=== PATIENT | male | born 1985 | race African-American/Black ===

== ENCOUNTER 2018-01-02 18:07 | Emergency (ER) | payer BC ==
--- NOTE | 2018-01-02 19:22 | ED ---
Back Pain - HPI Summary HPI Summary: A 32 y/o male presents to ED c/o back pain reaching 3/10 in severity. Currently , the patient has no back pain when he lays down, however, does have lower back pain reaching to his buttock area when he stands up. As per triage, "states that appx 7 pm last evening was doing his laundry.he lifted the laundry basket and felt a sudden pop in his low back .ststes pain started appx 2 or 3 hrs later.now couldnt get out of bed,today he has rtrouble moving.pain radiates down r buttock". According to the patient, he started experiencing lower back pain yesterday after he lifted up his laundry basket. He stated that when he lifted up the basket, he felt something was wrong, however he still continued with his everyday routine activities and ended up laying in bed 3-4 hours later which is when he started feeling the back pain. Additional symptoms include frequent urination. He noted that he is a very active person and does physical "stuff" all the time including with his job. Patient took 800 mg of Ibuprofen earlier. - History of Current Complaint Chief Complaint: EDBackInjuryPain Stated Complaint: LOWER BACK PAIN Time Seen by Provider: 01/02/18 19:18 Hx Obtained From: Patient Onset/Duration: Sudden Onset, Lasting Hours, Still Present Onset/Duration: Started Hours Ago, Still Present Timing: Constant Severity Initially: Mild Severity Currently: Mild Pain Intensity: 3 Pain Scale Used: 0-10 Numeric Aggravating Symptom(s): Movement Alleviating Symptom(s): Position - Laying down on bed Associated Signs And Symptoms: Positive: Negative - Allergies/Home Medications Allergies/Adverse Reactions: Allergies Allergy/AdvReac Type Severity Reaction Status Date / Time No Known Allergies Allergy Verified 01/02/18 19:53 Home Medications: Home Medications buPROPion TAB* [Wellbutrin TAB*] 75 mg PO DAILY 01/02/18 [History Confirmed ] PMH/Surg Hx/FS Hx/Imm Hx Endocrine/Hematology History: Denies: Hx Diabetes Cardiovascular History: Denies: Hx Hypertension, Hx Pacemaker/ICD Respiratory History: Denies: Hx Asthma Sensory History: Denies: Hx Hearing Aid Psychiatric History: Denies: Hx Eating Disorder, Hx Panic Disorder, Hx of Violent Episodes Against Others - Surgical History Surgery Procedure, Year, and Place: No prior surgeries. Infectious Disease History: No Infectious Disease History: Denies: Traveled Outside the [place] in Last 30 Days - Family History Known Family History: Positive: Diabetes, Other - Cancer Negative: Hypertension - Social History Alcohol Use: None Substance Use Type: Reports: Prescribed Substance Use Comment - Amount & Last Used: 2 and 1/2 weeks ago Review of Systems Negative: Fever Positive: frequency - Increased Positive: Other - POSITIVE: Lower back pain All Other Systems Reviewed And Are Negative: Yes Physical Exam - Summary Physical Exam Summary: VITAL SIGNS: Reviewed. GENERAL: Patient is a well-developed and nourished male who is lying comfortable in the stretcher. Patient is not in any acute respiratory distress. HEAD AND FACE: No signs of trauma. No ecchymosis, hematomas or skull depressions. No sinus tenderness. EYES: PERRLA, EOMI x 2, No injected conjunctiva, no nystagmus. EARS: Hearing grossly intact. Ear canals and tympanic membranes are within normal limits. MOUTH: Oropharynx within normal limits. NECK: Supple, trachea is midline, no adenopathy, no JVD, no carotid bruit, no c- spine tenderness, neck with full ROM. CHEST: Symmetric, no tenderness at palpation LUNGS: Clear to auscultation bilaterally. No wheezing or crackles. CVS: Regular rate and rhythm, S1 and S2 present, no murmurs or gallops appreciated. ABDOMEN: Soft, non-tender. No signs of distention. No rebound no guarding, and no masses palpated. Bowel sounds are normal. EXTREMITIES: FROM in all major joints, no edema, no cyanosis or clubbing, Negative bilateral straight leg raise test. Back Exam: Lumbosacral tenderness NEURO: Alert and oriented x 3. No acute neurological deficits. Speech is normal and follows commands. SKIN: Dry and warm Triage Information Reviewed: Yes Vital Signs On Initial Exam: Initial Vitals Temp Pulse Resp BP Pulse Ox 97.5 F 110 20 168/111 96 01/02/18 18:25 01/02/18 18:25 01/02/18 18:25 01/02/18 18:25 01/02/18 18:25 Vital Signs Reviewed: Yes Diagnostics - Vital Signs Vital Signs Temp Pulse Resp BP Pulse Ox 01/02/18 18:25 97.5 F 110 20 168/111 96 - Laboratory Lab Statement: Any lab studies that have been ordered have been reviewed, and results considered in the medical decision making process. Back Pain Course/Dx - Course Course Of Treatment: A 32 y/o male presents to ED c/o back pain reaching 3/10 in severity. Currently, the patient has no back pain when he lays down, however , does have lower back pain reaching to his buttock area when he stands up. No laboratory scans were done. In the ED course, the patient recieved Toradol and Flexeril. Patient will be discharged with a diagnosis of lower back pain. Patient will be sent home with Ibuprofen and Flexeril. Patient is to follow up with PCP in 1-2 days. Patient is agreeable with this plan. - Diagnoses Provider Diagnoses: Lower back pain Discharge - Sign-Out/Discharge Documenting (check all that apply): Patient Departure - DISCHARGE - Discharge Plan Condition: Stable Disposition: HOME Prescriptions: Cyclobenzaprine TAB* [Flexeril 10 MG TAB*] 10 mg PO TID PRN #20 tab PRN Reason: Pain - Back Ibuprofen TAB* [Motrin TAB* 800 MG] 800 mg PO Q6H PRN #30 tab PRN Reason: Pain - Back Patient Education Materials: Low Back Strain (ED), Back Pain (ED) Forms: *Work Release Referrals: [facility] [Outside] - 2 Days Additional Instructions: FOLLOW UP WITH PRIMARY CARE OR [facility] IN 1-2 DAYS. TAKE MEDICATIONS PRESCRIBED. RETURN TO ED FOR ANY NEW OR WORSENING SYMPTOMS. - Attestation Statements Document Initiated by Scribe: Yes Documenting Scribe: Constantine Caballero Provider For Whom Julieth is Documenting (Include Credential): Austyn Clancy Attestation: Constantine Freeman, scribed for Jd Russo on 01/02/18 at 2039.
[2018-01-02] MEDS ORDERED: Ketorolac INJ* 60 MG/2 ML VIAL IM ONE (19:42)
[2018-01-02] MEDS ORDERED: Cyclobenzaprine TAB* 10 MG PO ONE (19:43)
[2018-01-02] MEDS ORDERED: Cyclobenzaprine TAB* 10 MG ONE (20:03)
[2018-01-02 21:12] VITALS: BP 160/95
== END 2018-01-02 21:10 | disposition home or self-care (01) ==
LOC: ED 18:07
DX: M54.5 Low back pain (principal)
CPT/HCPCS: 96372; 99282; A9270-GY; J1885